=== PATIENT | female | born 1930 | race Caucasian/White ===

== ENCOUNTER → 2016-04-20 | Outpatient (CLI) | payer MEDICARE, BC ==
[~2016-04-20] MED LIST: ASPIRIN PO; ASPIRIN81 M1 PO; ASPIRIN81 M2 PO; CIPRO PO; ELIQUIS5 MG PO; LEXAPRO PO; LEXAPRO5 MG PO; LIPITOR40 MG PO; LOMOTIL TABLET1 TAB PO; LOVENOX40 MG/0.4 INJ; NORCO 5/325 TAB1 TAB PO; PREMARIN; PROVERA; TOPROL XL PO; TYLOX 5/500 CAP1 CAP PO; XARELTO20 MG PO
--- NOTE | ~2016-04-20 | MY7 ---
[facility] A Service of [facility] & [facility] RADIOLOGY TEXT RESULTS PATIENT: AZCK POP LOCATION: [facility] : 30 UNIT #: [id number] AGE: [address]: Laurel Don APRN SEX: F ORDER DR: [id number] [facility] [address] [place], [place] [address] [id number] O MR#: [id number] Acc #: [id number] NAME: ZACK POP. : 1930 SEX: F STUDY DATE/TIME: 04/20/2016 10:32 UNIT: [facility] ROOM: STUDY DESCRIPTION: MY Mammogram Dx Dig Lt Attending Physician: Laurel Don A.P.R.N. Referring Physician: Laurel Don A.P.R.N. Ordering Physician: Laurel Don A.P.R.N. Primary Care Physician: Lupis Aparicio M.D. MEDICAL IMAGING REPORT This report is preliminary unless electronic signature is present EXAM Left digital diagnostic mammogram INDICATION 6-month follow up left breast focal asymmetry. PROCEDURE True lateral CC and MLO views of the left breast as well spot compression views in the CC and MLO projections obtained on a digital mammography unit. COMPARISON 10/08/2015 FINDINGS Scattered fibroglandular density left breast. Persistent density is seen in the left breast at approximately the 6 o'clock position. It is stable compared with the prior measuring approximately 8 mm. Evaluation with ultrasound in the area of mammographic concern shows a lobulated hypoechoic mass left breast 5 o'clock position measuring 6 x 5 x 5 mm. IMPRESSION Lobulated hypoechoic mass in the left breast at the 5 o'clock position probably representing the area of mammographic abnormality. Recommend ultrasound-guided core biopsy to obtain tissue and confirm that this represents the area of mammographic concern. Patient's over the age of 40 are entered into a reminder system with target due date for the next mammogram. BIRADS: 4b Suspicious abnormality; biopsy should be considered; intermediate level of suspicion for malignancy. [facility] A Service of [facility] & [facility] & [facility] RADIOLOGY TEXT RESULTS PATIENT: ZACK POP LOCATION: [facility] : 30 UNIT #: [id number] AGE: [address]: Laurel Don APRN SEX: F ORDER DR: Dictated by... Ventura Page M.D. THIS IS AN ELECTRONICALLY VERIFIED REPORT Ventura Page M.D. at 04/21/2016 7:08 AM ADI/tru TD: 04/20/2016 14:56 JOB #: [id number] MEDICAL IMAGING REPORT COPY
--- NOTE | ~2016-04-20 | US24 ---
[facility] A Service of [facility] RADIOLOGY TEXT RESULTS PATIENT: ZACK POP LOCATION: [facility] : 30 UNIT #: [id number] AGE: [address]: Laurel Don APRN SEX: F ORDER DR: [id number] [facility] [address] [place], [place] [address] [id number] O MR#: [id number] Acc #: [id number] NAME: ZACK POP. : 1930 SEX: F STUDY DATE/TIME: 04/20/2016 11:50 UNIT: [facility] ROOM: STUDY DESCRIPTION: US Breast Unilateral Attending Physician: Laurel Don A.P.R.N. Referring Physician: Laurel Don A.P.R.N. Ordering Physician: Laurel Don A.P.R.N. Primary Care Physician: Lupis Aparicio M.D. MEDICAL IMAGING REPORT This report is preliminary unless electronic signature is present EXAM Left breast ultrasound. INDICATION Mammographic abnormality. 6-month followup. PROCEDURE Brownlee-scale and Doppler imaging left breast near mammographic concern. COMPARISON STUDIES Concurrently performed diagnostic mammogram. FINDINGS/IMPRESSION Refer to separately dictated diagnostic mammogram for workup findings and recommendations. Patients over the age of 40 are entered into a reminder system with target due date for the next mammogram. A result letter will also be sent to the patient. BIRADS: 4 Suspicious abnormality; biopsy should be considered. Dictated by... Ventura Page M.D. THIS IS AN ELECTRONICALLY VERIFIED REPORT Ventura Page M.D. at 04/21/2016 7:08 AM ANKITD/feliciano TD: 04/20/2016 14:49 JOB #: [id number] [facility] A Service [facility] RADIOLOGY TEXT RESULTS PATIENT: ZACK POP LOCATION: [facility] : 30 UNIT #: [id number] AGE: [address]: Laurel Don APRN SEX: F ORDER DR: MEDICAL IMAGING REPORT COPY
== END | disposition home or self-care (01) ==
LOC: CMAM 10:12
DX: R92.8 Other abnormal and inconclusive findings on diagnostic imaging of breast (principal); N63 Unspecified lump in breast
CPT/HCPCS: 76641; G0206

== ENCOUNTER → 2016-05-10 | Outpatient (CLI) | payer MEDICARE, BC ==
--- NOTE | ~2016-05-10 | US200 ---
[facility] A Service of [facility] RADIOLOGY TEXT RESULTS PATIENT: ZACK POP LOCATION: [facility] : 30 UNIT #: [id number] AGE: [address]: Laurel Don APRN SEX: F ORDER DR: [id number] [facility] [address] [place], [place] [address] [id number] O MR#: [id number] Acc #: [id number] NAME: ZACK POP. : 1930 SEX: F STUDY DATE/TIME: 05/10/2016 10:52 UNIT: [facility] ROOM: STUDY DESCRIPTION: US Breast Guided Bx 1st Lesion Attending Physician: Laurel Don A.P.R.N. Referring Physician: Laurel Don A.P.R.N. Ordering Physician: Laurel Don A.P.R.N. Primary Care Physician: Lupis Aparicio M.D. MEDICAL IMAGING REPORT This report is preliminary unless electronic signature is present REVISED REPORT SEE ADDENDUM EXAM Ultrasound-guided left breast core biopsy 05/10/2016 INDICATIONS Left breast mass. PROCEDURE Follow discussion of the procedure including potential risk and benefit, informed consent was obtained. The patient's questions were answered. The patient was brought to the ultrasound suite and a call to order time-out was performed. Preliminary imaging identifies the left breast mass at the 5 o'clock position. Skin was prepped and draped using full sterile technique. Skin and overlying soft tissues were anesthetized with lidocaine. Small dermatotomy was made. Then under ultrasound guidance 2 core samples were obtained using automated core biopsy device using ultrasound guidance. Images were stored. Then a marker clip was placed under ultrasound guidance and an image was stored. No immediate complication. Samples were submitted to pathology per protocol. The postbiopsy mammogram shows placement of the marker clip in the area of original mammographic concern. IMPRESSION Status post left breast ultrasound-guided core biopsy. No immediate complication. Dictated by... Ventura E. Camilo, M.D. THIS IS AN ELECTRONICALLY VERIFIED REPORT Ventura Page M.D. at 05/11/2016 10:02 AM [facility] A Service of [facility] RADIOLOGY TEXT RESULTS PATIENT: ZACK POP LOCATION: [facility] : 30 UNIT #: [id number] AGE: [address]: Laurel Don APRN SEX: F ORDER DR: Lali TD: 05/10/2016 15:27 JOB #: [id number] ADDENDUM Addendum to ultrasound-guided breast biopsy date of service 05/10/2016. 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 Pathology is concordant with imaging features. Dictated by... Ventura Page M.D. THIS IS AN ELECTRONICALLY VERIFIED REPORT Ventura Page M.D. at 05/23/2016 9:51 PM ADI/meagan TD: 05/21/2016 23:45 JOB #: [id number] CC: Rowan/donnie Please Delete MEDICAL IMAGING REPORT Page 1 of 1 COPY
== END | disposition home or self-care (01) ==
LOC: CWCC 10:10
DX: C50.512 Malignant neoplasm of lower-outer quadrant of left female breast (principal); Z17.0 Estrogen receptor positive status [ER+]
CPT/HCPCS: 88305; 88341; 88342; 88360; G0204

== ENCOUNTER → 2016-05-25 | Outpatient (CLI) | payer MEDICARE, BC ==
--- NOTE | ~2016-05-25 | EKG ---
PATIENT: ZACK POP UNIT #: [id number] Ventricular Rate: 57 BPM Atrial Rate: 57 BPM P-R Interval: 172 ms QRS Duration: 82 ms Q-T Interval: 442 ms QTC Calculation(Bezet): 430 ms P [place]: 67 degrees Calculated R [place]: -16 degrees Calculated T [place]: 39 degrees Diagnosis Line: Sinus bradycardia Diagnosis Line: Otherwise normal ECG Diagnosis Line: When compared with ECG of 21-JUL-2015 06:38, Diagnosis Line: Premature atrial complexes are no longer Present Diagnosis Line: Nonspecific T wave abnormality, improved in Diagnosis Line: Anterolateral leads Diagnosis Line: Confirmed by BALDEV SWAN MD ([id number]) on 05/25/2016 Diagnosis Line: 11:36:00 PM INTERPRETING MD: BENY JONES
[2016-05-25 12:10] LABS: HEMATOCRIT 39.3 % (35.0-45.0); HEMOGLOBIN 12.9 gm/dL (12.0-16.0); MEAN CORPUSCULAR HEMOGLOBIN 30.3 PG (28-34); MEAN PLATELET VOLUME 10.1 FL (6.5-11.5); RED BLOOD COUNT 4.27 X10e (3.90-5.30); RED CELL DISTRIBUTION WIDTH 13.3 % (11.0-15.5); WHITE BLOOD COUNT 5.8 X10e3 (4.0-10.5)
[2016-05-25 12:50] LABS: ALBUMIN SERUM 4.2 g/dL (3.5-5.0); BILIRUBIN,TOTAL 0.9 mg/dL (0.2-2.0); CREATININE SERUM 0.8 mg/dL (0.6-1.4); GLOM FILT RATE Estimated 67.3 mL/min (>60); POTASSIUM 4.1 mmol/L (3.5-5.1); PROTEIN TOTAL SERUM 7.1 g/dL (6.0-8.3)
== END | disposition home or self-care (01) ==
LOC: CAMB 10:46
PROVIDERS: Specialist
DX: Z01.818 Encounter for other preprocedural examination (principal); N63 Unspecified lump in breast
CPT/HCPCS: 36415; 80053; 85027; 93005

== ENCOUNTER → 2016-06-01 | Day surgery (SDC) | payer MEDICARE, BC ==
--- NOTE | ~2016-06-01 | US202 ---
[facility] A Service of [facility] RADIOLOGY TEXT RESULTS PATIENT: ZACK POP LOCATION: [facility] : 30 UNIT #: [id number] AGE: [address]: Wicho Campbell MD SEX: F ORDER DR: [id number] [place] [id number] [facility]. [place], [place] [address] [id number] O MR#: [id number] Acc #: [id number] NAME: ZACK POP. : 1930 SEX: F STUDY DATE/TIME: 06/01/2016 8:10 UNIT: [facility] ROOM: STUDY DESCRIPTION: US Breast Guided Ndl Loc 1st Attending Physician: Wicho Campbell M.D. Referring Physician: Wicho Campbell M.D. Ordering Physician: Wicho Campbell M.D. Primary Care Physician: Lupis Aparicio M.D. MEDICAL IMAGING REPORT This report is preliminary unless electronic signature is present REVISED REPORT SEE ADDENDUM EXAM Ultrasound-guided needle localization. HISTORY Left breast mass. FINDINGS The risks and benefits of the procedure were discussed with the patient. Specifically the low risk of bleeding and low risk of infection were emphasized. Patient was given opportunity to ask questions and informed consent was obtained. Preprocedural time-out performed per protocol. Ultrasound was utilized to confirm location of the biopsy mass. This is located at the 5 o'clock position of the left breast approximately 4 cm from the nipple. An appropriate site for needle entry was marked on the patient's skin. The area was prepped and draped in the usual sterile fashion. 1% Lidocaine was infiltrated into the skin and along the expected path of the localization needle. A 5-cm localization needle was then advanced through the lesion and the hook wire was deployed. The needle was withdrawn. The patient tolerated the procedure well with no immediate complications. Post wire placement ultrasound and post wire placement mammograms confirm deployment of the hook wire immediately adjacent to the biopsy clip and left breast nodule. IMPRESSION [facility] A Service [facility] RADIOLOGY TEXT RESULTS PATIENT: ZACK POP [facility] #: [id number] : 30 UNIT #: [id number] AGE: [address]: Wicho Campbell MD SEX: F ORDER DR: Successful wire localization of the left breast nodule/left breast biopsy clip. Dictated by... Myron Rice M.D. THIS IS AN ELECTRONICALLY VERIFIED REPORT Myron Rice M.D. at 06/02/2016 3:14 PM OSCAR/meagan TD: 06/02/2016 15:02 JOB #: [id number] ADDENDUM REPORT ADDENDUM The final pathology was reviewed. 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 This is concordant with the imaging findings. Dictated by... Myron Rice M.D. THIS IS AN ELECTRONICALLY VERIFIED REPORT Myron Rice M.D. at 07/15/2016 12:23 AM OSCAR/amanuel TD: 07/14/2016 01:00 JOB #: [id number] MEDICAL IMAGING REPORT Page 1 of 1 COPY
--- NOTE | ~2016-06-01 | MY14 ---
[facility] A Service of [facility] & [facility] RADIOLOGY TEXT RESULTS PATIENT: ZACK POP LOCATION: [facility] : 30 UNIT #: [id number] AGE: [address]: Wicho Campbell MD SEX: F ORDER DR: [id number] [facility] [address] [place], [place] [address] [id number] O MR#: [id number] Acc #: [id number] NAME: ZACK POP : 1930 SEX: F STUDY DATE/TIME: 06/01/2016 8:49 UNIT: [facility] ROOM: STUDY DESCRIPTION: MY Post Bx Film Attending Physician: Wicho Campbell M.D. Referring Physician: Wicho Campbell M.D. Ordering Physician: Wicho Campbell M.D. Primary Care Physician: Lupis Aparicio M.D. MEDICAL IMAGING REPORT This report is preliminary unless electronic signature is present EXAM Post-needle localization films. FINDINGS CC and LM views of the left breast were obtained. There is a hook wire from the lateral to medial aspect of the breast. The thick part of the hook wire is medially adjacent to the biopsy clip. The tip of the wire is approximately 1.5 cm medial to the clip. IMPRESSION Successful wire localization of the clip and soft tissue nodule. Dictated by... Myron Rice M.D. THIS IS AN ELECTRONICALLY VERIFIED REPORT Myron Rice M.D. at 06/01/2016 5:15 PM OSCAR/margarito TD: 06/01/2016 15:47 JOB #: [id number] MEDICAL IMAGING REPORT Page 1 of 1 COPY
--- NOTE | ~2016-06-01 | MY13 ---
[facility] A Service of [facility] & [facility] RADIOLOGY TEXT RESULTS PATIENT: ZACK POP LOCATION: [facility] : 30 UNIT #: [id number] AGE: [address]: Wicho Campbell MD SEX: F ORDER DR: [id number] [facility] [address] [place], [place] [address] [id number] O MR#: [id number] Acc #: [id number] NAME: ZACK POP : 1930 SEX: F STUDY DATE/TIME: 06/01/2016 11:04 UNIT: [facility] ROOM: STUDY DESCRIPTION: MY Surgical Specimen Attending Physician: Wicho Campbell M.D. Referring Physician: Wicho Campbell M.D. Ordering Physician: Wicho Campbell M.D. Primary Care Physician: Lupis Aparicio M.D. MEDICAL IMAGING REPORT This report is preliminary unless electronic signature is present EXAM My Surgical specimen HISTORY Left breast mass. Wire localization for surgical excision. FINDINGS The specimen radiograph contains the complete hookwire, soft tissue nodule, and the biopsy clip. IMPRESSION Successful surgical excision of the hook wire, clip, and left breast mass. Dictated by... Myron Rice M.D. THIS IS AN ELECTRONICALLY VERIFIED REPORT Myron Rice M.D. at 06/01/2016 5:15 PM OSCAR/mayito TD: 06/01/2016 15:11 JOB #: [id number] MEDICAL IMAGING REPORT Page 1 of 1 COPY
--- NOTE | ~2016-06-01 | OR ---
Unit #: [id number] #: [id number] Patient: ZACK POP [id number] [address] [place], [place] [address] [id number] O MR#: [id number] NAME: ZACK POP ROOM: Date of Procedure: 06/01/2016 Admission Date: 06/01/2016 Surgeon: Wicho Campbell M.D. : 1930 Attending Physician: Wicho Campbell M.D. Referring Physician: Wicho Campbell M.D. Primary Care Physician: Lupis Aparicio M.D. 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 PROCEDURE PERFORMED Left breast needle localized excisional biopsy. ANESTHESIA General endotracheal anesthesia. ESTIMATED BLOOD LOSS Less than 10 mL. INDICATIONS FOR PROCEDURE An 85-year-old female, who had a mammographic abnormality and underwent stereotactic biopsy. Pathology came back as a papillary neoplasm. To ensure the accuracy of the diagnosis, excisional biopsy is warranted. DESCRIPTION OF PROCEDURE The patient was admitted to [facility], positively identified, and transported to the Breast Center, where needle localization was performed by the radiologist. She was then transported to the operating room, where after induction of general endotracheal anesthesia, she was prepped and draped in usual sterile fashion. In the skin line, an incision was made. We followed the guidewire down and circumferentially removed tissues for 2 cm around the guidewire. The specimen was sent to the mammography suite, where on radiographic evaluation of the lesions, the previously placed localization clip and the guidewire were all present. There appeared to be a margin around the lesion that was seen radiographically. 30 mL of 0.5% Marcaine with epinephrine was infiltrated in this breast tissue for postop pain control. I irrigated and obtained hemostasis. The skin was closed with 4-0 Monocryl subcuticular closure and Dermabond skin adhesive. Sponges and needle counts were correct x3. The patient tolerated the procedure well and transported to recovery in stable condition. Postoperative instructions were discussed with her family. Dictated by... Wicho Campbell M.D. Unit #: [id number] #: [id number] Patient: ZACK POP/johnson TD: 06/02/2016 00:50 JOB #: [id number] OPERATIVE REPORT Page 1 of 1 X Wicho Campbell MD PROCEDURE OPERATIVE NOTE
== END | disposition home or self-care (01) ==
LOC: CSUR 07:14
DX: N62 Hypertrophy of breast (principal); N64.2 Atrophy of breast; I48.91 Unspecified atrial fibrillation; I10 Essential (primary) hypertension; E78.5 Hyperlipidemia, unspecified; M19.90 Unspecified osteoarthritis, unspecified site; I63.9 Cerebral infarction, unspecified; K21.9 Gastro-esophageal reflux disease without esophagitis; Z98.41 Cataract extraction status, right eye; Z98.42 Cataract extraction status, left eye; Z87.442 Personal history of urinary calculi; Z85.038 Personal history of other malignant neoplasm of large intestine; Z90.49 Acquired absence of other specified parts of digestive tract; Z86.73 Personal history of transient ischemic attack (TIA), and cerebral infarction without residual deficits; Z88.1 Allergy status to other antibiotic agents; Z88.2 Allergy status to sulfonamides; Z79.01 Long term (current) use of anticoagulants; Z79.899 Other long term (current) drug therapy; Z87.19 Personal history of other diseases of the digestive system
CPT/HCPCS: 76098; 88307; 88344; G0204; J0690; J1100; J2405; J3010; Q9968